=== PATIENT | female | born 2000 | race African-American/Black ===

== ENCOUNTER → 2024-04-25 14:20 | Outpatient (CLI) | payer OTHER, SELFPAY ==
[2024-04-27 13:10] LABS: Candida species Negative (Negative); Gardnerella vaginalis Negative (Negative); Trichomoas vaginalis Negative (Negative)
== END ==
PROVIDERS: PCP Nurse Practitioner Family; Visit Provider Obstetrics & Gynecology
DX: R30.0 Dysuria (principal); N89.8 Other specified noninflammatory disorders of vagina
CPT/HCPCS: 87086; 87480; 87510; 87660